=== PATIENT | male | born 1990 | race Two or more races ===

== ENCOUNTER 2019-06-25 07:00 | Emergency (ER) | payer MEDICAID ==
[~2019-06-25] VITALS: Ht 180.3 cm; Wt 109.0 kg
[2019-06-25] MEDS ORDERED: KETOROLAC 60MG/2ML VIAL IM ONE (07:45)
[2019-06-25] MEDS ORDERED: DIAZEPAM 5 MG TABLET PO ONE (07:45)
[2019-06-25 08:57] LABS: CLARITY URINE CLOUDY (CLEAR); COLOR URINE YELLOW (YELLOW); KETONES URINE NEGATIVE (NEGATIVE); LEUKOCYTE ESTERASE URINE NEGATIVE (NEGATIVE); NITRITE URINE NEGATIVE (NEGATIVE); OCCULT BLOOD URINE NEGATIVE (NEGATIVE); PROTEIN URINE NEGATIVE (NEGATIVE); SPECIFIC GRAVITY URINE 1.023 (1.005-1.030); UROBILINOGEN URINE 0.2 E.U./dL (0.2-1.0)
[2019-06-25] MEDS ORDERED: MORPHINE SULFATE 4 MG/ML CPJ (NOT FOR IM USE) IV ONE (10:00)
[2019-06-25] MEDS ORDERED: DEXAMETHASONE 10 MG/ML VIAL IV ONE (10:00)
[2019-06-25] MEDS ORDERED: ONDANSETRON HCL 4MG/2ML INJ IV ONE (10:00)
[2019-06-25 11:30] VITALS: BP 115/74
== END 2019-06-25 11:45 | disposition home or self-care (01) ==
LOC: ER 07:36
DX: M51.26 Other intervertebral disc displacement, lumbar region (principal)
CPT/HCPCS: 72100; 72148; 81003; 96372; 96374; 96375; 99284; J1100; J1885; J2270; J2405